=== PATIENT | female | born 1985 | race Caucasian/White ===

== ENCOUNTER 2020-11-14 10:24 | Inpatient (IN) | payer OTHER ==
[~2020-11-14] VITALS: Ht 162.6 cm; Wt 99.8 kg
--- NOTE | 2020-11-15 00:32 | NUR ---
SWABBED BOTH NARES FOR RAPID COVID TEST
--- NOTE | 2020-11-15 02:57 | NUR ---
11/15/20 0257 Sunshine Puente BABY IS WITH FATHER AT THE BEDSIDE. PATIENT IS DENYING PAIN. PATIENT IS SHAKING AND EDUCATION IS COMPLETE WITH REGARD TO THAT. PATIENT VERBALIZES UNDERSTANDING.
--- NOTE | 2020-11-15 11:27 | PR ---
[facility] [address] [facility] [address] [place], [place] [address] Signed PP Progress Notes Datetime Report Generated by CPN: 11/15/2020 11:27 SUBJECTIVE: [id number] Pain: Within Normal Limits Nausea/Vomiting: Denies Vital Signs: [id number] Vital Signs: Reviewed; Within Normal Limits Abdomen/Uterus: Normal Lochia: Normal Extremities: Normal Incision: Normal Exam Comments: dressing clean and dry IMPRESSION/PLAN/PROCEDURES: [id number] Impression: Normal Progression Plan: Continue Present Management Procedures: None Progress Notes: Doing well, no complaints, tolerating food well. Will increase activity this afternoon Signing Physician: Dean Oswald MD Copies: ~ *Electronically Signed* 11/15/20 1127 DEAN OSWALD MD PATIENT NAME: QING CABRERA PROGRESS NOTE DATE OF : 81 PHYSICIAN: DEAN OSWALD MD RPT #: [id number] REPORT IS CONFIDENTIAL AND NOT TO BE RELEASED WITHOUT AUTHORIZATION
--- NOTE | 2020-11-15 11:29 | OR ---
[facility] [address] [place], [place] [address] Signed DATE OF OPERATION: 11/15/2020 SURGEON: George Hays MD PREOPERATIVE DIAGNOSES: Term labor, premature rupture of membranes, and transverse lie, meconium. POSTOPERATIVE DIAGNOSIS: Term labor, premature rupture of membranes, and transverse lie, meconium. PROCEDURE: Primary low transverse segment section, delivery of live female infant. GEOSCIENCE LABORATORY TECHNICIAN: Dr. Kennedy. ANESTHESIA: Spinal. ESTIMATED BLOOD LOSS: 500 mL. COMPLICATIONS: None. DRAINS: Cisneros to bladder. FINDINGS: Live female infant in transverse fashion with the head to the right with delivery from LSA position. Nuchal cord around the neck tight x2, thin meconium noted. Normal uterus. Normal tubes and ovaries bilateral. DESCRIPTION OF PROCEDURE: The patient was brought to the operating room, placed in supine position after adequate spinal anesthesia was obtained. She was prepped and draped in usual sterile fashion. Cisneros catheter was placed in the bladder. A Pfannenstiel skin incision was made with a scalpel and extended through the subcutaneous tissue with the Bovie. The fascia was nicked with scalpel and extended in transverse fashion using curved scissors. The underlying abdominal musculature was bluntly and sharply from the fascia above Electronically Signed By: GEORGE HAYS MD 11/15/20 1129 PATIENT NAME: QING CABRERA OPERATIVE REPORT DATE OF : 81 REPORT #: [id number] PHYSICIAN: GEORGE HAYS MD PCP: GEORGE HAYS MD REPORT IS CONFIDENTIAL AND NOT TO BE RELEASED WITHOUT AUTHORIZATION [facility] [address] [place], [place] [address] Signed and below the incision. The abdominal musculature was bluntly and sharply along the midline. The peritoneum was grasped with hemostats, elevated, nicked with Metzenbaum scissors, and extended in vertical fashion using Metzenbaum scissors. The Bryant self-retaining retractor was inserted into the incision and tightened in place. The lower uterine segment was identified and was noted to be wide enough for normal incision, so a small kirk was made in the lower uterine segment and the scalpel and finger dissection used to extend the incision in transverse fashion. The infant's buttocks were off to the left. This was pulled down into the incision and the buttocks delivered back up to the shoulders and the rest of the infant easily followed, as soon as the head was delivered, tight nuchal cord x2 was noted. This was removed with the head right at the incision and then the infant delivered the rest of the way. The cord was doubly clamped and cut and the passed off table in good condition to the awaiting nurse. The placenta was manually removed and uterine cavity was explored with a lap pad to remove any retained membranes. An angle stitch of 0 Monocryl was placed at one end of the incision and running locking stitch of 0 Monocryl starting at the other end, used to close the incision. A 2nd running stitch of 0 Monocryl was used to imbricate the 1st layer. There was still some bleeding at the left angle, which was controlled with a [id number] stitch of 0 Monocryl. A finger was placed behind the broad ligament to make sure that this did not include any structures behind the broad ligament. After this, stitch was placed, good hemostasis was noted. The entire pelvis was irrigated, suctioned, examined, any superficial bleeding spots were cauterized with the Bovie. The left angle was re-examined and noted to have good hemostasis. The Bryant self-retaining retractor was removed and the entire pelvis irrigated, suctioned, examined again. The sheet of ACell was placed over the lower uterine segment and then the anterior wall peritoneum closed using running stitch of 2-0 Vicryl suture. The abdominal musculature was reapproximated using interrupted stitches of 0 Vicryl suture. The abdominal wall incision was irrigated, suctioned, examined, any superficial bleeding spots cauterized with the Bovie. The fascia was closed using 2 running stitch of 0 Vicryl suture meeting in the midline. Subcutaneous tissue was irrigated, suctioned, examined, any bleeding spots cauterized with the Bovie. Subcutaneous tissue was closed in two layers using interrupted stitches of 3-0 Vicryl suture. The skin was reapproximated using skin clips. The patient tolerated the procedure well, went to recovery room in good condition. The sponge, needle, and instrument count were correct at the end of the procedure. MD REMY Fraire/ANDREWL Electronically Signed By: GEORGE HAYS MD 11/15/20 1129 PATIENT NAME: QING CABRERA OPERATIVE REPORT DATE OF : 81 REPORT #: [id number] PHYSICIAN: GEORGE HAYS MD PCP: GEORGE HAYS MD REPORT IS CONFIDENTIAL AND NOT TO BE RELEASED WITHOUT AUTHORIZATION [address] [address] Signed /[id number] Copies: ~ Electronically Signed By: GEORGE HAYS MD 11/15/20 1129 PATIENT NAME: QING CABRERA OPERATIVE REPORT DATE OF : 81 REPORT #: [id number] PHYSICIAN: GEORGE HAYS MD PCP: GEORGE HAYS MD REPORT IS CONFIDENTIAL AND NOT TO BE RELEASED WITHOUT AUTHORIZATION
--- NOTE | 2020-11-16 12:41 | PR ---
[facility] [address] [facility] [place], [place] [address] Signed PP Progress Notes Datetime Report Generated by CPN: 11/16/2020 12:41 SUBJECTIVE: [id number] Pain: Within Normal Limits Nausea/Vomiting: Denies Vital Signs: [id number] Vital Signs: Reviewed; Within Normal Limits Notable Details: PP HGb/Hct = 8.9/26.8 EXAM: Ongoing Abdomen/Uterus: Normal Lochia: Normal Extremities: Normal Incision: Normal Exam Comments: dressing clean and dry IMPRESSION/PLAN/PROCEDURES: [id number] Impression: Normal Progression Other Impression: Episode of Syncope. Anemia Plan: Continue Present Management Procedures: None Other Procedures: IV Feraheme Progress Notes: Patient had episode of fainting this morning when getting up. BP and pulse both normal, feeling much better now and has been up to bathroom without problem. Encouraged to get up and move slowly. -> IV Feraheme x1 (with repeat dose in 3-7 days) Signing Physician: Dean Oswald MD Copies: ~ *Electronically Signed* 11/16/20 1241 DEAN OSWALD MD PATIENT NAME: QING CABRERA PROGRESS NOTE DATE OF : 81 PHYSICIAN: DEAN OSWALD MD RPT #: [id number] REPORT IS CONFIDENTIAL AND NOT TO BE RELEASED WITHOUT AUTHORIZATION
--- NOTE | 2020-11-17 13:14 | PR ---
[facility] [address] [facility] [place], [place] [address] Signed PP Progress Notes Datetime Report Generated by CPN: 11/17/2020 13:14 SUBJECTIVE: [id number] Pain: Within Normal Limits Nausea/Vomiting: Denies Vital Signs: [id number] Vital Signs: Reviewed; Within Normal Limits Notable Details: PP HGb/Hct = 8.9/26.8 EXAM: Ongoing Abdomen/Uterus: Normal Lochia: Normal Extremities: Normal Incision: Normal Exam Comments: dressing clean and dry IMPRESSION/PLAN/PROCEDURES: [id number] Impression: Normal Progression Other Impression: Episode of Syncope. Anemia Plan: Discharge Procedures: None Other Procedures: IV Feraheme Progress Notes: Doing well, without complaint, feeling much better. Ready to go home. Signing Physician: Dean Oswald MD Copies: ~ *Electronically Signed* 11/17/20 1314 DEAN OSWALD MD PATIENT NAME: QING CABRERA PROGRESS NOTE DATE OF : 81 PHYSICIAN: DEAN OSWALD MD RPT #: [id number] REPORT IS CONFIDENTIAL AND NOT TO BE RELEASED WITHOUT AUTHORIZATION
== END 2020-11-17 14:14 | disposition home or self-care (01) | DRG 788 ==
LOC: FBC 11-15 → MS 11-16 21:02 → FBC 11-16 21:08
PROVIDERS: ADMIT General Practice; ATTEND General Practice
PROC: 10D00Z1 Extraction of Products of Conception, Low, Open Approach (ICD-10-PCS; principal; 2020-11-15 01:49)
DX: O42.92 Full-term premature rupture of membranes, unspecified as to length of time between rupture and onset of labor (principal); Z3A.40 40 weeks gestation of pregnancy; Z37.0 Single live birth; O99.824 Streptococcus B carrier state complicating childbirth; O32.2XX0 Maternal care for transverse and oblique lie, not applicable or unspecified; O77.0 Labor and delivery complicated by meconium in amniotic fluid; O69.1XX0 Labor and delivery complicated by cord around neck, with compression, not applicable or unspecified; O90.81 Anemia of the puerperium; D64.9 Anemia, unspecified; Z87.440 Personal history of urinary (tract) infections
CPT/HCPCS: 01961; 36415; 85027; A9270; C9803; J0690; J1100; J1644; J2001; J2274; J2370; J2405; J2590; J3010; J7121; Q0138; U0003